=== PATIENT | female | born 1960 | race Caucasian/White ===

== ENCOUNTER 2019-11-30 08:01 | Outpatient (CLI) | payer BC, SELFPAY ==
[2019-11-30 08:23] LABS: Hemoglobin 14.6 g/dL (12.0-15.0); Mean Corpuscular HGB Conc 32.4 g/dl (32-36); Mean Corpuscular Hemoglobin 30.7 pg (26-34); Mean Corpuscular Volume 94.7 fl (80-100); Mean Platelet Volume 10.8 fl (7.4-10.4); Platelet Count Result 157 k/mm3 (150-375); Red Blood Count 4.75 M/mm3 (4.2-5.4); Red Cell Distribution Width 13.2 % (11.5-14.5); White Blood Count 5.8 K/mm3 (4.5-10.0)
[2019-11-30 08:38] LABS: Alanine Aminotransferase 17 U/L (4-35); Albumin Level 4.5 g/dL (3.5-5.1); Alkaline Phosphatase 75 U/L (38-126); Aspartate Amino Transferase 25 U/L (14-36); Bilirubin,Total 0.5 mg/dL (0.2-1.3); Blood Urea Nitrogen 19 mg/dL (7-17); Calcium 9.4 mg/dL (8.4-10.2); Carbon Dioxide 29 mmol/L (22-30); Chloride 103 mmol/L (98-107); Cholesterol 224 mg/dL (0-200); Estimated Glomerular Filt Rate > 60; Glucose 104 mg/dL (65-105); HDL Direct 63 mg/dL; Potassium 4.2 mmol/L (3.4-5.0); Sodium 141 mmol/L (137-145); Triglycerides 123 mg/dL (<150)
[2019-11-30 08:50] LABS: LDL Cholesterol Direct 130 mg/dL
[2019-11-30 09:08] LABS: Thyroid Stimulating Hormone 0.425 uIU/mL (0.465-4.680)
== END 2019-11-30 08:02 | disposition home or self-care (01) ==
LOC: ANHLAB 08:02
PROVIDERS: PCP Internal Medicine; Visit Provider Internal Medicine
DX: R73.9 Hyperglycemia, unspecified (principal); R53.83 Other fatigue
CPT/HCPCS: 36415; 80053; 80061; 84443; 85027

== ENCOUNTER → 2019-12-27 16:18 | Outpatient (CLI) | payer BC, SELFPAY ==
--- NOTE | ~2019-12-27 | MM_ITS ---
EXAMINATION: MM screening [facility] BI w jessika HISTORY: Screening TECHNIQUE: Craniocaudal and mediolateral oblique 3-D tomosynthesis images were obtained and synthetic 2-D images were generated. CAD analysis was submitted and interpreted. COMPARISON: Comparison to multiple prior studies sequentially, with oldest reviewed study dated 09/2015. BREAST PARENCHYMAL COMPOSITION: The breasts are extremely dense, which lowers the sensitivity of mamm ography. FINDINGS: Stable benign-appearing findings of both breasts. There is no evidence of suspicious mass, calcification, or architectural distortion to suggest malignancy in either breast. There has been no suspicious interval change. IMPRESSION: 1. No mammographic evidence of malignancy. 2. Recommend routine screening mammography in one year. BI-RADS Category 2: Benign finding(s). Reviewed, dictated and finalized at location A.
== END ==
PROVIDERS: Referring Provider Obstetrics & Gynecology Gynecology; Visit Provider Nurse Practitioner Family
DX: Z12.31 Encounter for screening mammogram for malignant neoplasm of breast (principal)
CPT/HCPCS: 77063; 77067

== ENCOUNTER 2020-01-24 12:22 | Emergency (ER) | payer BC, SELFPAY ==
[2020-01-24] VITALS (7 sets, daily range): BP systolic 140–157; BP diastolic 87–97; PULSE 82–90; RESP 16–18; TEMP 37.4; O2SAT 96–100
--- NOTE | ~2020-01-24 | XR_ITS ---
EXAMINATION: XR chest 1V portable INDICATION: Chest pain TECHNIQUE: Portable AP chest at 1316 hours COMPARISON: 10/01/2016 FINDINGS: The lungs are free of acute opacities. There is no pleural effusion or pneumothorax. The lauro ng volumes are low. The cardiomediastinal silhouette is normal. IMPRESSION: 1. No acute cardiopulmonary abnormality. Reviewed, dictated and finalized at location B.
--- NOTE | ~2020-01-24 | CT_ITS ---
EXAMINATION: CTA chest PE protocol DATE: 01/24/2020 14:39 INDICATION: Generalized chest pain TECHNIQUE: Computed tomography angiography (CTA) of the chest was performed with 100 mL Omnipaque-350 intravenous contrast timed to evaluate the pulmonary arteries. Coronal maximum intensity projection 3D-reconstructions were created by the technologist. Automated exposure control and iterative reconst ruction technique were employed. Exam dose: 310.59 mGy-cm total exam DLP. COMPARISON: 01/24/2020 portable AP chest FINDINGS: There is diagnostic contrast enhancement of the pulmonary arteries and no evidence of pulmo nary embolism. No thoracic aortic aneurysm or dissection. No thyroid mass lesion is evident. No hilar or mediastinal mass lesion or lymphadenopathy is detected . Normal heart size. No pericardial or pleural effusion. Normal morphology of the adrenal glands. There is mild atelectasis in the lower lung zones. Otherwise no pulmonary infiltrate or consolidation or pulmonary mass lesion is not evident. There is degenerative spurring of the thoracic spine. No suspicious osteolytic or osteoblastic lesion s are noted. IMPRESSION: No evidence of pulmonary embolism Reviewed, dictated and finalized at Location A. Reviewed, dictated and finalized at location A.
--- NOTE | 2020-01-24 12:51 | ECG_ITS ---
Measurements Intervals [place] Rate: 85 P: 18 KS: 133 QRS: -14 QRSD: 95 T: 11 QT: 346 QTc: 413 Interpretive Statements SINUS RHYTHM POOR R WAVE PROGRESSION, CONSIDER ANTERIOR INFARCT MINIMAL Q WAVES- HIGH LATERAL LEADS BORDERLINE T WAVE ABNORMALITY- ANT/INF LEADS ABNORMAL ECG Electronically Signed On 01-24-2020 13:03:47 CDT by Raúl Polk D.O.
--- NOTE | 2020-01-24 12:56 | ED.GENADULT ---
HPI - General Adult General Chief complaint: Upper Respiratory Infection Stated complaint: Multiple C/O Time Seen by Provider: 01/24/20 12:34 Source: patient Mode of arrival: ambulatory Limitations: no limitations History of Present Illness HPI narrative: This patient is a 59 year old female with history of migraine PAULA who presents for evaluation migraine headache, sore throat and left eye swelling. She states starting 1.5 weeks ago she developed URI symptoms similar to COVID. She reports sore throat , body aches, left eye irritation and swelling. She also reports left sided migraine headache for 5 days . Related Data Home Medications Medication Instructions Recorded Confirmed albuterol sulfate 90 mcg/actuation 2 puff INHALATION Q4-6H PRN gm 05/21/19 aerosol inhaler ergocalciferol (vitamin D2) 1,250 1,250 mcg PO WEEKLY 05/21/19 mcg (50,000 unit) capsule fluticasone propionate 45 2 puff INHALATION BID 12/03/19 mcg-salmeterol 21 mcg/actuation HFA inhaler Allergies Allergy/AdvReac Type Severity Reaction Status Date / Time diphenhydramine Allergy Severe Anaphylactic Verified 01/24/20 12:39 Shock metronidazole Allergy Intermediate blisters Verified 01/24/20 12:39 in the mouth Penicillins Allergy Mild Rash Verified 01/24/20 12:39 Sulfa (Sulfonamide Allergy Mild rash Verified 01/24/20 12:39 Antibiotics) Review of Systems Review of Systems: All systems reviewed & are unremarkable except as noted in HPI and below Constitutional: Constitutional: Denies chills, Reports fatigue and Denies fever(s) Eyes: Eyes: Reports eye discharge and Reports photophobia ENT: Reports sore throat Cardiovascular: Cardiovascular: Reports chest pain Respiratory: Respiratory: Reports cough (improved) and Denies dyspnea Gastrointestinal: Gastrointestinal: Denies abdominal pain, Reports nausea and Denies vomiting Neurologic: Reports headache(s) [facility] Social History Social History Smoking status: Former smoker Second hand tobacco smoke exposure: No Smoking end date: 05/16/81 Alcohol intake: never Substance use: never Gender identity (if verbalized by the patient): Female Exam Const: General: no acute distress and alert Orientation/consciousness: patient oriented x3 HENMT: Head: normocephalic and atraumatic Ears: external ears normal General nose exam: Normal nares present Face and sinus: sinuses nontender and face symmetric Mouth: Yes Normal oral and palatal mucosa present, Yes lip normal, Yes tongue normal, Yes oropharynx normal and Yes moist mucous membranes Teeth and gingiva: gingiva normal Throat: posterior oropharynx normal, tonsils normal and uvula midline Eyes: Conjunctivae: conjunctival abnormality left conjunctival injection Pupils: Equal, round and reactive pupils present EOM: EOMs intact bilaterally Neck: Neck: normal visual inspection Chest: Chest palpation & inspection: normal inspection of the chest Resp: Effort & Inspection: normal respiratory effort and no retractions Auscultation: clear to auscultation bilaterally Cardio: Rate: regular rate Rhythm: regular rhythm Heart sounds: no murmurs GI: GI Palp: Yes Soft to palpation, No Tenderness to palpation present (GI), No Guarding due to palpation present (GI) and No Rigid due to palpation Skin: General skin exam: normal color Rashes: no rashes Neuro: General: patient oriented x3, moves all extremities, no meningeal signs and CN's II-XI intact bilaterally Cranial nerves: Yes Nystagmus not present Extrem: General: normal to inspection Psych: Mental Status: mental status grossly normal Affect: normal affect Course Reevaluation(s) Reevaluation #1: Patient reports her headache is improving. I Discussed discharge plan with discharge home. Will give antibiotic eye ointment. She has no focal deficits . No corneal fluroscein uptake. Normal
[2020-01-24 13:08] LABS: Basophils Percent Auto 0.3 % (0.2-1.2); Eosinophils Absolute Auto 0.1 K/mm3 (0-0.3); Eosinophils Percent Auto 1.2 % (0-4.4); Hematocrit 45.2 % (37.0-47.0); Hemoglobin 14.8 g/dL (12.0-15.0); Immature Granulocyte Absolute 0.01 K/mm3 (0.00-0.031); Immature Granulocyte Percent A 0.2 % (0-0.5); Lymphocytes Absolute Auto 1.24 K/mm3 (0.9-3.2); Lymphocytes Percent Auto 20.7 % (18.3-44.2); Mean Corpuscular HGB Conc 32.7 g/dl (32-36); Mean Corpuscular Hemoglobin 30.8 pg (26-34); Mean Platelet Volume 10.7 fl (7.4-10.4); Monocytes Absolute Auto 0.4 K/mm3 (0.1-0.6); Monocytes Percent Auto 7.4 % (2.6-8.5); Neutrophils Absolute Auto 4.2 K/mm3 (1.3-6.7); Neutrophils Percent Auto 70.2 % (45.5-73.1); Platelet Count Result 166 k/mm3 (150-375); Red Blood Count 4.81 M/mm3 (4.2-5.4); Red Cell Distribution Width 13.3 % (11.5-14.5)
[2020-01-24] MEDS: METOCLOPRAMIDE HCL INJ 10 MG/2 ML VIAL IV PUSH (13:12)
[2020-01-24] MEDS: LACTATED RINGERS 1,000 ML 999 ML IV CONT ×2 (13:12→14:44)
[2020-01-24] MEDS: KETOROLAC 30 MG/ML VIAL (*BKC) IV PUSH (13:13)
[2020-01-24 13:22] LABS: Alanine Aminotransferase 16 U/L (4-35); Albumin Level 4.3 g/dL (3.5-5.1); Alkaline Phosphatase 75 U/L (38-126); Anion Gap 8 mmol/L (8-16); Aspartate Amino Transferase 19 U/L (14-36); Bilirubin,Total 0.6 mg/dL (0.2-1.3); Blood Urea Nitrogen 16 mg/dL (7-17); Carbon Dioxide 31 mmol/L (22-30); Chloride 101 mmol/L (98-107); Estimated CRCL calculation 68 ml/min; Estimated Glomerular Filt Rate > 60; Glucose 115 mg/dL (65-105); Potassium 4.1 mmol/L (3.4-5.0); Sodium 140 mmol/L (137-145)
[2020-01-24 13:24] LABS: D Dimer 1.13 ug/mL (<0.48)
--- NOTE | 2020-01-24 13:29 | PC.NURSE ---
pt strep culture sent to lab at this time.
[2020-01-24 13:33] LABS: Troponin I < 0.012 ng/mL (0.000-0.034)
[2020-01-24 14:29] LABS: Monoscreen Negative (Negative)
[2020-01-24 14:30] LABS: Negative Monotest Control Negative (Negative); Positive Monotest Control Positive (Positive)
--- NOTE | 2020-01-24 14:32 | PC.NURSE ---
pt to ct at this time, will medicate per provider order upon return.
--- NOTE | 2020-01-24 14:45 | PC.NURSE ---
PT PLACED ON 10L VIA NON-REBREATHER BY KUN WHYTE TO SEE IF IT HELPS PT PAULA.
--- NOTE | 2020-01-29 07:56 | PC.NURSE ---
LATE ENTRY This note is being entered to document information to the patient's record. The following information was omitted on [01/24/2020], by [BESSY]. LR WAS COMPLETED AT 1514 AND OFIRMEV WAS COMPLETED AT 1430.
== END 2020-01-24 15:48 | disposition home or self-care (01) ==
PROVIDERS: Emergency Provider General Practice; PCP Internal Medicine
DX: B34.9 Viral infection, unspecified (principal); G43.909 Migraine, unspecified, not intractable, without status migrainosus; H10.32 Unspecified acute conjunctivitis, left eye; R94.31 Abnormal electrocardiogram [ECG] [EKG]; Z87.891 Personal history of nicotine dependence
CPT/HCPCS: 36415; 71045; 71275; 80053; 84484; 85025; 85380; 86308; 87081; 87880; 93005; 96361; 96374; 96375; 99284; A9270; J0131; J1885; J2765; J7120; Q9967

== ENCOUNTER 2020-02-16 08:17 | Outpatient (CLI) | payer BC, SELFPAY ==
[2020-02-16 08:48] LABS: Basophils Percent Auto 0.5 % (0.2-1.2); Eosinophils Absolute Auto 0.1 K/mm3 (0-0.3); Hematocrit 41.9 % (37.0-47.0); Hemoglobin 13.9 g/dL (12.0-15.0); Immature Granulocyte Absolute 0.01 K/mm3 (0.00-0.031); Immature Granulocyte Percent A 0.2 % (0-0.5); Lymphocytes Absolute Auto 1.77 K/mm3 (0.9-3.2); Lymphocytes Percent Auto 30.4 % (18.3-44.2); Mean Corpuscular HGB Conc 33.2 g/dl (32-36); Mean Corpuscular Hemoglobin 30.9 pg (26-34); Mean Corpuscular Volume 93.1 fl (80-100); Mean Platelet Volume 10.4 fl (7.4-10.4); Monocytes Absolute Auto 0.3 K/mm3 (0.1-0.6); Monocytes Percent Auto 5.1 % (2.6-8.5); Neutrophils Absolute Auto 3.7 K/mm3 (1.3-6.7); Neutrophils Percent Auto 62.8 % (45.5-73.1); Platelet Count Result 177 k/mm3 (150-375); Red Cell Distribution Width 13.8 % (11.5-14.5); White Blood Count 5.8 K/mm3 (4.5-10.0)
[2020-02-16 09:09] LABS: Alanine Aminotransferase 15 U/L (4-35); Albumin Level 4.1 g/dL (3.5-5.1); Alkaline Phosphatase 59 U/L (38-126); Anion Gap 5 mmol/L (8-16); Aspartate Amino Transferase 22 U/L (14-36); Bilirubin,Total 0.5 mg/dL (0.2-1.3); Blood Urea Nitrogen 23 mg/dL (7-17); Calcium 9.3 mg/dL (8.4-10.2); Carbon Dioxide 35 mmol/L (22-30); Chloride 101 mmol/L (98-107); Cholesterol 190 mg/dL (0-200); Estimated Glomerular Filt Rate > 60; Glucose 103 mg/dL (65-105); HDL Direct 58 mg/dL; Potassium 4.2 mmol/L (3.4-5.0); Sodium 141 mmol/L (137-145); Triglycerides 82 mg/dL (<150)
[2020-02-16 09:19] LABS: Hemoglobin A1C 5.6 % (<5.7)
[2020-02-16 09:20] LABS: LDL Cholesterol Direct 114 mg/dL
[2020-02-16 09:47] LABS: Vitamin D 25 Hydroxy 39.2 ng/mL
[2020-02-16 09:48] LABS: Free T4 Free Thyroxine 0.73 ng/mL (0.78-2.19)
[2020-02-20 03:46] LABS: Thyroglobulin 2.2 ng/mL (2.8-40.9); Thyroglobulin Antibodies <1 IU/mL (<=1)
== END 2020-02-16 08:18 | disposition home or self-care (01) ==
LOC: ANHLAB 08:19
PROVIDERS: PCP Internal Medicine; Visit Provider Internal Medicine
DX: E55.9 Vitamin D deficiency, unspecified (principal); R53.83 Other fatigue; R79.89 Other specified abnormal findings of blood chemistry; R73.9 Hyperglycemia, unspecified
CPT/HCPCS: 36415; 80053; 80061; 82306; 82607; 82746; 83036; 84432; 84439; 84443; 85025; 86800

== ENCOUNTER 2020-10-02 14:39 | Outpatient (CLI) | payer BC, SELFPAY ==
--- NOTE | 2020-10-02 14:44 | ECHO_ITS ---
Patient Info Name: Daiana Bar Age: 59 years : 1960 Gender: Female Ht: 62 in Wt: 170 lbs BSA: 1.87 m2 HR: 89 bpm BP: 124 / 78 mmHg Technical Quality: Good Exam Date: 10/02/2020 3:19 PM Exam Location: [facility] Patient Status: Outpatient Admit Date: 10/02/2020 Staff Ordering Physician: Jonathan Ratliff DO Administrative Coordinator: Naomi Grewal RDCS Attending Provider: Jonathan Ratliff DO Referring Physician: Gaudencio GUAJARDO; Exam Type: CA echo doppler color flow Study Info Indications - CARDIAC MURMUR UNSPECIFIED Complete two-dimensional, color flow and Doppler transthoracic echocardiogram is performed. Summary 1. Complete two-dimensional, color flow and Doppler transthoracic echocardiogram is performed. 2. Left ventricular chamber dimension is normal. 3. Left ventricular systolic function is normal, estimated at 60-65%. 4. The left ventricular diastolic function is grade I diastolic dysfunction. 5. E/e' 11 is mildly elevated. 6. Global longitudinal strain is normal at -18.3%. 7. There is mild tricuspid valve regurgitation. 8. No pulmonary hypertension, estimated pulmonary arterial systolic pressure is 24 mmHg. Left Ventricle E/e' 11 is mildly elevated. Global longitudinal strain is normal at -18.3%. Left ventricular chamber dimension is normal. Left ventricular systolic function is normal, estimated at 60-65%. The left ventricular diastolic function is grade I diastolic dysfunction. Right Ventricle Right ventricular chamber dimension is normal. Right ventricular systolic function is normal. Left Atria Left atrial chamber dimension is normal. Right Atria Right atrial chamber dimension is normal. Aortic Valve The aortic valve is trileaflet. There is no aortic valve stenosis. There is no aortic valve regurgitation. Pulmonic Valve There is no pulmonic regurgitation. Mitral Valve There is no mitral valve stenosis. There is no mitral valve regurgitation. Tricuspid Valve There is mild tricuspid valve regurgitation. No pulmonary hypertension, estimated pulmonary arterial systolic pressure is 24 mmHg. Pericardium/Pleural There is no pericardial effusion. Inferior Vena Cava Normal inferior vena cava with >50% collapse upon inspiration consistent with normal right atrial pressure, 5 mmHg. Aorta The aortic root size at the sinus of Valsalva is normal. Left Ventricular Outflow Tract Name Value Normal LVOT 2D LVOT Diameter 2.0 cm LVOT Doppler LVOT Peak Gradient 4 mmHg LVOT Mean Gradient 2 mmHg LVOT VTI 24 cm LVOT VTI/AV VTI Ratio 0.9 LVOT Stroke Volume 72 ml LVOT CO 12.8 l/min LVOT CI 6.9 l/min/m2 Pulmonic Valve Name Value Normal PV Doppler
== END 2020-10-02 14:40 | disposition home or self-care (01) ==
PROVIDERS: PCP Internal Medicine; Visit Provider Internal Medicine
DX: R01.1 Cardiac murmur, unspecified (principal); I36.1 Nonrheumatic tricuspid (valve) insufficiency
CPT/HCPCS: 93306

== ENCOUNTER 2020-10-11 10:46 | Outpatient (CLI) | payer BC, SELFPAY ==
[2020-10-11 11:56] LABS: Basophils Percent Auto 0.4 % (0.2-1.2); Eosinophils Absolute Auto 0.1 K/mm3 (0-0.3); Eosinophils Percent Auto 1.7 % (0-4.4); Hematocrit 42.4 % (37.0-47.0); Hemoglobin 13.5 g/dL (12.0-15.0); Immature Granulocyte Absolute 0.01 K/mm3 (0.00-0.031); Immature Granulocyte Percent A 0.2 % (0-0.5); Lymphocytes Absolute Auto 1.42 K/mm3 (0.9-3.2); Lymphocytes Percent Auto 26.4 % (18.3-44.2); Mean Corpuscular HGB Conc 31.8 g/dl (32-36); Mean Corpuscular Hemoglobin 30.3 pg (26-34); Mean Corpuscular Volume 95.1 fl (80-100); Mean Platelet Volume 11.3 fl (7.4-10.4); Monocytes Absolute Auto 0.3 K/mm3 (0.1-0.6); Monocytes Percent Auto 5.8 % (2.6-8.5); Neutrophils Absolute Auto 3.5 K/mm3 (1.3-6.7); Neutrophils Percent Auto 65.5 % (45.5-73.1); Platelet Count Result 189 k/mm3 (150-375); Red Blood Count 4.46 M/mm3 (4.2-5.4); Red Cell Distribution Width 13.6 % (11.5-14.5); White Blood Count 5.4 K/mm3 (4.5-10.0)
[2020-10-11 12:18] LABS: Alanine Aminotransferase 14 U/L (4-35); Albumin Level 4.2 g/dL (3.5-5.1); Alkaline Phosphatase 66 U/L (38-126); Anion Gap 5 mmol/L (8-16); Aspartate Amino Transferase 25 U/L (14-36); Bilirubin,Total 0.5 mg/dL (0.2-1.3); Blood Urea Nitrogen 13 mg/dL (7-17); Calcium 9.3 mg/dL (8.4-10.2); Carbon Dioxide 32 mmol/L (22-30); Chloride 106 mmol/L (98-107); Cholesterol 181 mg/dL (0-200); Estimated Glomerular Filt Rate > 60; Glucose 92 mg/dL (65-105); HDL Direct 61 mg/dL; Potassium 4.1 mmol/L (3.4-5.0); Sodium 143 mmol/L (137-145); Triglycerides 121 mg/dL (<150)
[2020-10-11 12:29] LABS: LDL Cholesterol Direct 68 mg/dL
[2020-10-11 13:06] LABS: Free T4 Free Thyroxine 0.86 ng/mL (0.78-2.19)
[2020-10-11 13:25] LABS: Folic Acid > 20.0 ng/mL (2.76->20)
== END 2020-10-11 10:47 | disposition home or self-care (01) ==
PROVIDERS: PCP Internal Medicine; Visit Provider Internal Medicine
DX: R53.83 Other fatigue (principal); E78.5 Hyperlipidemia, unspecified; R79.89 Other specified abnormal findings of blood chemistry
CPT/HCPCS: 36415; 80053; 80061; 82607; 82746; 84439; 84443; 85025

== ENCOUNTER 2020-10-15 09:15 | Outpatient (CLI) | payer BC, SELFPAY ==
--- NOTE | 2020-10-20 14:22 | WPDHOLTEREM ---
Holter/Event Monitor Holter/Event Monitor Date of procedure: 10/15/20 Procedure Type: 48 hour holter monitor Indications: Palpitations Conclusion: 1. 48 hour holter monitor on 10/15/20. 2. Underlying rhythm is sinus rhythm. HR range 65-130 bpm; average HR 88 bpm. 3. There are 25 premature supraventricular complexes and 4 supraventricular couplets. No supraventricular tachycardia. 4. No premature ventricular complexes. No ventricular tachycardia. 5. No sinoatrial or atrioventricular blocks. No significant pauses greater than 2 seconds. 6. No symptoms available for correlation.
== END 2020-10-15 09:16 | disposition home or self-care (01) ==
PROVIDERS: PCP Internal Medicine; Visit Provider Internal Medicine
DX: R00.2 Palpitations (principal)
CPT/HCPCS: 93225; 93226

== ENCOUNTER 2021-10-31 11:43 | Outpatient (CLI) | payer BC, SELFPAY ==
[2021-10-31 12:46] LABS: Basophils Percent Auto 0.5 % (0.2-1.2); Eosinophils Absolute Auto 0.1 K/mm3 (0-0.3); Eosinophils Percent Auto 0.8 % (0-4.4); Hematocrit 44.4 % (37.0-47.0); Immature Granulocyte Absolute 0.01 K/mm3 (0.00-0.031); Immature Granulocyte Percent A 0.2 % (0-0.5); Lymphocytes Percent Auto 27.9 % (18.3-44.2); Mean Corpuscular HGB Conc 31.5 g/dl (32-36); Mean Corpuscular Hemoglobin 30.4 pg (26-34); Mean Corpuscular Volume 96.5 fl (80-100); Mean Platelet Volume 11.3 fl (7.4-10.4); Monocytes Absolute Auto 0.5 K/mm3 (0.1-0.6); Monocytes Percent Auto 7.7 % (2.6-8.5); Neutrophils Absolute Auto 3.8 K/mm3 (1.3-6.7); Neutrophils Percent Auto 62.9 % (45.5-73.1); Platelet Count Result 151 k/mm3 (150-375); Red Cell Distribution Width 14.2 % (11.5-14.5); White Blood Count 6.1 K/mm3 (4.5-10.0)
[2021-10-31 13:04] LABS: Alanine Aminotransferase 12 U/L (6-35); Albumin Level 4.3 g/dL (3.5-5.1); Alkaline Phosphatase 75 U/L (38-126); Anion Gap 5 mmol/L (8-16); Aspartate Amino Transferase 20 U/L (14-36); Bilirubin,Total 0.5 mg/dL (0.2-1.3); Blood Urea Nitrogen 16 mg/dL (7-17); Carbon Dioxide 31 mmol/L (22-30); Chloride 105 mmol/L (98-107); Cholesterol 205 mg/dL (0-200); Estimated Glomerular Filt Rate > 60; Glucose 97 mg/dL (65-110); HDL Direct 63 mg/dL; Potassium 4.3 mmol/L (3.4-5.0); Sodium 141 mmol/L (137-145); Triglycerides 113 mg/dL (<150)
[2021-10-31 13:15] LABS: LDL Cholesterol Direct 98 mg/dL
[2021-10-31 14:09] LABS: Folic Acid 8.9 ng/mL (2.76->20)
== END 2021-10-31 11:44 | disposition home or self-care (01) ==
LOC: ANHLAB 11:45
PROVIDERS: PCP Internal Medicine; Visit Provider Internal Medicine
DX: Z00.00 Encounter for general adult medical examination without abnormal findings (principal); R53.83 Other fatigue
CPT/HCPCS: 36415; 80053; 80061; 82607; 82746; 84443; 85025

== ENCOUNTER 2022-10-07 11:58 | Outpatient (CLI) | payer BC, SELFPAY ==
[2022-10-07 12:23] LABS: Basophils Percent Auto 0.5 % (0.2-1.2); Eosinophils Percent Auto 0.5 % (0-4.4); Hematocrit 42.9 % (37.0-47.0); Hemoglobin 13.9 g/dL (12.0-15.0); Immature Granulocyte Absolute 0.01 K/mm3 (0.00-0.031); Immature Granulocyte Percent A 0.2 % (0-0.5); Lymphocytes Absolute Auto 1.57 K/mm3 (0.9-3.2); Lymphocytes Percent Auto 26.8 % (18.3-44.2); Mean Corpuscular HGB Conc 32.4 g/dl (32-36); Mean Corpuscular Volume 95.8 fl (80-100); Mean Platelet Volume 10.8 fl (7.4-10.4); Monocytes Absolute Auto 0.4 K/mm3 (0.1-0.6); Monocytes Percent Auto 6.1 % (2.6-8.5); Neutrophils Absolute Auto 3.9 K/mm3 (1.3-6.7); Neutrophils Percent Auto 65.9 % (45.5-73.1); Platelet Count Result 167 k/mm3 (150-375); Red Blood Count 4.48 M/mm3 (4.2-5.4); White Blood Count 5.9 K/mm3 (4.5-10.0)
[2022-10-07 12:29] LABS: Alanine Aminotransferase 23 U/L (6-35); Albumin Level 4.5 g/dL (3.5-5.1); Alkaline Phosphatase 74 U/L (38-126); Anion Gap 7 mmol/L (8-16); Aspartate Amino Transferase 25 U/L (14-36); Bilirubin,Total 0.5 mg/dL (0.2-1.3); Blood Urea Nitrogen 14 mg/dL (7-17); Carbon Dioxide 29 mmol/L (22-30); Chloride 103 mmol/L (98-107); Cholesterol 218 mg/dL (0-200); Estimated Glomerular Filt Rate > 60; Glucose 111 mg/dL (65-110); HDL Direct 75 mg/dL; Sodium 139 mmol/L (137-145); Triglycerides 130 mg/dL (<150)
[2022-10-07 12:40] LABS: LDL Cholesterol Direct 112 mg/dL
[2022-10-07 14:12] LABS: Folic Acid 6.7 ng/mL (2.76->20)
== END 2022-10-07 11:59 | disposition home or self-care (01) ==
LOC: ANHLAB 12:00
PROVIDERS: PCP Internal Medicine; Visit Provider Internal Medicine
DX: E78.5 Hyperlipidemia, unspecified (principal); R53.83 Other fatigue
CPT/HCPCS: 36415; 80053; 80061; 82607; 82746; 84443; 85025

== ENCOUNTER 2022-12-07 13:28 | Emergency (ER) | payer BC, SELFPAY ==
[2022-12-07 13:39] VITALS: BP 114/85; PULSE 98; RESP 18; TEMP 36.3; O2SAT 100
--- NOTE | 2022-12-07 13:49 | ED.EXTPRO ---
HPI - Extremity Problem General Chief complaint: Extremity Injury, Lower Stated complaint: Lt Foot Pain Time Seen by Provider: 12/07/22 13:45 Source: patient Mode of arrival: ambulatory Limitations: no limitations History of Present Illness HPI Narrative: Daiana is a 62-year-old female patient presenting to the clinic today with complaints of pain to the top of her foot. She reports this has been going on for several weeks and the area seems to be getting bigger. States that pain will radiate up her leg and cause her to have numbness and tingling. Related Data Allergies Allergy/AdvReac Type Severity Reaction Status Date / Time diphenhydramine Allergy Severe Anaphylactic Verified 11/22/22 13:29 Shock metronidazole Allergy Intermediate blisters Verified 11/22/22 13:29 in the mouth Penicillins Allergy Mild Rash Verified 11/22/22 13:29 Sulfa (Sulfonamide Allergy Mild rash Verified 11/22/22 13:29 Antibiotics) erythromycin base AdvReac Intermediate Rash Verified 11/22/22 13:29 Review of Systems Review of Systems: Pertinent positives per HPI. Patient denies any fever, chills, rash, headache, visual changes, dizziness, cough, runny nose, sore throat, shortness of breath, chest pain, palpitations, nausea, vomiting, diarrhea, constipation, abdominal pain, or any urinary issues. [facility] Past Medical History Medical History Hyperlipidemia Migraine, unspecified, not intractable, without status migrainosus Surgical History Surgical History History of eye surgery Family History Family History Mother Family history of diabetes mellitus in first degree relative Father Patient's father is Social History Social History Smoking packs per day: 0.5 Smoking cigarettes per day: 10.0 Years smoked: 5 Smoking pack-years: 2.50 Smoking status: Former smoker Second hand tobacco smoke exposure: No Smoking end date: 05/16/81 Alcohol intake: never Substance use: never Lack of Transportation: No Lack of Food: Never True Current Housing: I Have Housing Concerned About Future Housing: No Difficulty Paying Gas/Electric Bills: No Difficulty Paying for Meds: No Currently Unemployed: No Education: High School Diploma/GED Difficulty w/ Childcare or Family Care: No Gender identity (if verbalized by the patient): Female Comments At the time of my signature, I reviewed and agree with the nursing past medical, surgical, social, and family history. There is no relevant family history pertinent to the patient complaint. Exam Narrative: General: Well-developed, well nourished, in no apparent distress Head: Normocephalic, atraumatic. Cardio: Regular rate and rhythm, s1 and s2 normal, no murmur appreciated. Resp: Clear to auscultation bilaterally, no rhonchi, rales, wheezing or rubs. Musculoskeletal: No deformity, soft tissue mass palpable to the top of the left anterior lateral proximal foot, tender to palpation over this area, grossly normal range of motion, muscle strength strong and equal, peripheral pulse strong, no edema, no cyanosis, normal gait and station Course Course Emergency Course: Portions of this record may have been created with voice recognition software. Level of Care: Express Care Visit Vital Signs Vital signs: Vital Signs Temperature 36.3 C L 12/07/22 13:39 Pulse Rate 98 12/07/22 13:39 Respiratory Rate 18 12/07/22 13:39 Blood Pressure 114/85 12/07/22 13:39 Pulse Oximetry 100 12/07/22 13:39 Oxygen Delivery Room Air 12/07/22 13:39 Temperature 36.3 C L 12/07/22 13:39 Pulse Rate 98 12/07/22 13:39 Respiratory Rate 18 12/07/22 13:39 Blood Pressure 114/85 12/07/22 1
== END 2022-12-07 14:12 | disposition home or self-care (01) ==
PROVIDERS: Emergency Provider Nurse Practitioner Family; PCP Internal Medicine
DX: R22.42 Localized swelling, mass and lump, left lower limb (principal); M79.672 Pain in left foot; E78.5 Hyperlipidemia, unspecified; Z87.891 Personal history of nicotine dependence
CPT/HCPCS: 73630; 99213; G0463

== ENCOUNTER 2022-12-29 12:42 | Outpatient (CLI) | payer BC, SELFPAY ==
--- NOTE | ~2022-12-29 | US_ITS ---
EXAMINATION: US soft tissue LE LT DATE: 12/29/2022 13:20 INDICATION: Localized swelling, mass and lump, left foot. TECHNIQUE: Multiple grayscale and Doppler ultrasound images of the left foot were obtained. COMPARISON: None FINDINGS: There is no abnormal mass or cyst in the patient's area of concern in left foot. IMPRESSION: 1. No abnormal mass or cyst in the patient's area of concern in left foot. Reviewed, dictated and finalized at location A.
== END 2022-12-29 12:43 | disposition home or self-care (01) ==
PROVIDERS: PCP Internal Medicine; Visit Provider Physician Assistant
DX: R22.42 Localized swelling, mass and lump, left lower limb (principal)
CPT/HCPCS: 76882

== ENCOUNTER → 2023-01-06 13:11 | Outpatient (CLI) | payer BC, SELFPAY ==
--- NOTE | ~2023-01-06 | MM_ITS ---
EXAMINATION: MM screening [facility] BI w jessika HISTORY: Screening mammogram TECHNIQUE: Craniocaudal and mediolateral oblique 3-D tomosynthesis images were obtained and synthetic 2-D images were generated. CAD analysis was submitted and interpreted. COMPARISON: 12/27/2019, 11/15/2018 bilateral screening mammogram examinations BREAST PARENCHYMAL COMPOSITION: The breasts are heterogeneously dense, which may obscure small masses . FINDINGS: Occasional benign calcifications. There is no evidence of suspicious mass, calcification, o r architectural distortion to suggest malignancy in either breast. There has been no suspicious inter hazel change. IMPRESSION: 1. No mammographic evidence of malignancy. 2. Recommend routine screening mammography in one year. BI-RADS Category 2: Benign finding(s). Reviewed, dictated and finalized at location A.
--- NOTE | ~2023-01-06 | DEXA_ITS ---
Bone Density Report Name: THOMPSON PEARCE Age: 62 Sex: Female Ethnicity: Date of : 1960 Indication: postmenopausal; screening for osteoporosis; Referring Provider: CARLOS A, LUIS Study: Bone densitometry was performed. Exam Date: January 06, 2023 Accession number: [id number] Bone Density: Region BMD T-score Z-score Classification AP Spine (L1-L4) 0.927 -1.1 0.6 Osteopenia Femoral Neck (Left) 0.771 -0.7 0.5 Normal Total Hip (Left) 0.869 -0.6 0.4 Normal Femoral Neck (Right) 0.810 -0.3 0.9 Normal Total Hip (Right) 0.833 -0.9 0.1 Normal Total Hip Mean 0.851 -0.8 0.3 Normal World Health Organization criteria for BMD impression classify patients as: Normal (T-score at or above -1.0), Osteopenia (T-score between -1.0 and -2.5), or Osteoporosis (T-score at or below -2.5). 10-year Fracture Risk(1): Major Osteoporotic Fracture 7.1% Hip Fracture 0.4% Reported Risk Factors: [place] (), Neck BMD=0.771, BMI=32.1 (1) FRAX(R) Version 3.08. Fracture probability calculated for an untreated patient. Fracture probability may be lower if the patient has received treatment. Previous Exams: Region Exam Age BMD T-score BMD Change BMD Change Date g/cm2 vs Baseline vs Previous AP Spine(L1-L4) 01/06/2023 62 0.927 -1.1 -0.153* -0.105* 02/21/2017 56 1.031 -0.1 -0.048* -0.048* 06/20/2012 51 1.079 0.3 Total Hip(Left) 01/06/2023 62 0.869 -0.6 -0.127* -0.092* 02/21/2017 56 0.962 0.2 -0.035* -0.035* 06/20/2012 51 0.997 0.4 Total Hip(Right) 01/06/2023 62 0.833 -0.9 -0.117* -0.050* 02/21/2017 56 0.883 -0.5 -0.067* -0.067* 06/20/2012 51 0.950 0.1 *Denotes significance at 95% confidence level, LSC for AP Spine = 0.022 g/cm2, LSC for Total Hip = 0.027 g/cm2 Clinical Information Provided by Patient: Patient maximum height was 62.5 Menopause Age: 51 Drinks caffeinated beverages Onset of menses at age 9 Number of children 3 Impression: The patient has low bone mass, based on the Total Spine T-score. The patient has an estimated ten-year risk of hip fracture of 0.4% and an estimated ten-year risk of major fracture of 7.1%, based on the WHO FRAX algorithm. The BMD for the AP Spine(L1-L4) decreased, changing by -0.105 since the last DXA exam. The BMD for the Total Hip(Left) decreased, changing by -0.09
== END ==
PROVIDERS: PCP Internal Medicine; Visit Provider Nurse Practitioner
DX: Z12.31 Encounter for screening mammogram for malignant neoplasm of breast (principal); Z78.0 Asymptomatic menopausal state; M85.88 Other specified disorders of bone density and structure, other site
CPT/HCPCS: 77063; 77067; 77080

== ENCOUNTER 2023-02-04 03:17 | Day surgery (SDC) | payer BC, SELFPAY ==
[2023-01-27 15:15] VITALS: BMI 31.1
--- NOTE | 2023-01-27 15:21 | PC.NURSE ---
Report to the Outpatient Waiting Room, entrance under the green pavilion located off [facility], at time 0600 on date 02/04/23. Planned Procedure Time: 0730. Time changes happen often and if your time is changed the preop area will call you the afternoon before. - You and your visitor will be asked to self-screen and do not enter if you have any COVID symptoms. - A mask is optional within the hospital at this time. Patients may have clear liquids (water, carbonated beverages, clear teas, apple juice) until 3 hours prior to surgery with a maximum of 20 ounces. - No food from midnight until time of surgery Take the following medications with a SIP of water the morning of surgery: CITALOPRAM, INHALERS DO NOT STOP ANY OF YOUR OTHER PRESCRIPTION MEDICATIONS PRIOR TO SURGERY ?EXCEPT THE FOLLOWING Medications to discontinue per physician: N/A Date to take last dose: N/A Please no make-up, nail hebrew, hairspray, perfume, deodorant, or body powder the day of surgery. No jewelry (including any body piercings) or valuables the day of surgery, leave them at home. Please take a shower or bath the night before, or the morning of, surgery with an antibacterial soap. Wear comfortable, loose fitting clothing. - Jewelry must be removed prior to entering the operating room. Rings and piercings that are not removed may be cut off. - The hospital will not accept responsibility for valuables. - Please leave all valuables, including medications, at home the day of surgery. If you are going home after surgery, a licensed bobtail driver must drive you home. - NO public transportation without another adult if you receive anesthesia. - We recommend that an adult stay with you for 24 hours following discharge. - We also recommend that you do not drive, make important decision, drink alcoholic beverages, or take any drugs that were not prescribed by your health care provider for at least 24 hours after your discharge time. Follow any additional instructions given to you from your surgeon. If you or anyone in your household have experienced Covid symptoms in the past week, please notify your surgeon or the nurse liaison at the phone number below for possible testing. Telephone instructions given to PT - THOMPSON PEARCE and asked if any additional questions and then verbalized understanding. Patient advised to call surgeon office or pre surgery nurse liaison [phone] if any additional questions.
--- NOTE | 2023-02-03 07:36 | PM.IMHP ---
H&P: HPI History of Present Illness Date/Time: 02/03/23 07:36 Chief Complaint: Incontinence Narrative: [age] year old with documented stress incontinence by history and by urodynamics. She desires surgical correction Review of Systems Review of Systems: All systems reviewed & are unremarkable except as noted in HPI and below PMFSH Past Medical History Medical History Hyperlipidemia Migraine, unspecified, not intractable, without status migrainosus Surgical History Surgical History History of eye surgery Family History Family History Mother Family history of diabetes mellitus in first degree relative Father Patient's father is Social History Social History Smoking packs per day: 0.5 Smoking cigarettes per day: 10.0 Years smoked: 5 Smoking pack-years: 2.50 Smoking status: Former smoker Tobacco type: cigarettes Second hand tobacco smoke exposure: No Smoking end date: 05/16/87 Alcohol intake: never Substance use: never Substance use type: does not use Lack of Transportation: No Lack of Food: Never True Current Housing: I Have Housing Concerned About Future Housing: No Difficulty Paying Gas/Electric Bills: No Difficulty Paying for Meds: No Currently Unemployed: No Education: High School Diploma/GED Difficulty w/ Childcare or Family Care: No Living arrangements: alone Gender identity (if verbalized by the patient): Female Spiritual care concerns: No Meds Home Medications and Allergies Home Medications Medication Instructions Recorded Confirmed Type albuterol sulfate 90 mcg/actuation 2 puff inhalation Q4-6H PRN 07/02/20 01/27/23 Rx aerosol inhaler (ProAir HFA) Shortness Of Breath #8.5 grams fluticasone 250 mcg-salmeterol 50 1 inh inhalation BID #180 ea 02/28/22 01/27/23 Rx mcg/dose blistr powdr for inhalation (Advair Diskus) citalopram 20 mg tablet 20 mg PO DAILY #90 tabs 10/14/22 01/27/23 Rx pantoprazole 40 mg tablet,delayed 40 mg PO QAM #90 tabs 11/22/22 01/27/23 Rx release montelukast 10 mg tablet 10 mg PO DAILY #90 tabs 01/07/23 01/27/23 Rx sumatriptan succinate 100 mg tablet See Rx Instructions PO .COMPLEX #9 01/21/23 01/27/23 Rx tabs trazodone 100 mg tablet 100 mg PO .hs #90 tabs 01/31/23 Rx Allergies Allergy/AdvReac Type Severity Reaction Status Date / Time diphenhydramine Allergy Severe Anaphylactic Verified 01/27/23 15:14 Shock metronidazole Allergy Intermediate blisters Verified 01/27/23 15:14 in the mouth Penicillins Allergy Mild Rash Verified 01/27/23 15:14 Sulfa (Sulfonamide Allergy Mild rash Verified 01/27/23 15:14 Antibiotics) erythromycin base AdvReac Intermediate Rash Verified 01/27/23 15:14 Exam Narrative: no acute distress normal breathing alert and oriented x3 urethral hypermobility present Assessment and Plan Assessment and plan (1) INCOLAS (stress urinary incontinence, female): Code(s): N39.3 - Stress incontinence (female) (male) Status: Acute Assessment and Plan: plan for urethral sling. Understands risks of bleeding, infection, damage to the urinary tract, lack of cure of stress incontinence, recurrent stress incontinence postoperative voiding dysfunction including incontinence and retention, hip and leg pain, dyspareunia, obstructive voiding requiring secondary procedure, mesh exposure requiring removal. She agrees to proceed
--- NOTE | 2023-02-04 07:18 | WPDHPUPDATE1 ---
History and Physical Update Update Date/Time: 02/04/23 07:18 History and Physical has been reviewed, including an updated exam of the patient. There are NO changes in the patient's condition. Risks, benefits, and alternatives have been discussed and questions answered. Patient agrees to proceed with procedure.
[2023-02-04 07:26] VITALS: BP 136/80; PULSE 88; RESP 18; TEMP 36.7; O2SAT 99
[2023-02-04] MEDS: LACTATED RINGERS 1,000 ML 30 ML IV CONT ×2 (07:50→09:52)
--- NOTE | 2023-02-04 07:54 | WPDANESEPPF ---
Anes - Initial Pre Proc Eval Procedure: Operation Date: 02/04/23 09:00 Proposed Procedures p Urethral Sling - Thai Medina MD Date/Time: 02/04/23 07:54 Surgeon: Thai Medina MD Pre Op Diagnosis: Stress Incont Patient Data Age: 62 Gender: F Height: 1.57 m Weight: 79 kg Last Vital Signs Temp 36.7 C 02/04/23 07:26 Pulse 88 02/04/23 07:26 Resp 18 02/04/23 07:26 BP 136/80 02/04/23 07:26 Pulse Ox 99 02/04/23 07:26 O2 Del Method Room Air 02/04/23 07:26 Allergies Allergy/AdvReac Type Severity Reaction Status Date / Time diphenhydramine Allergy Severe Anaphylactic Verified 02/04/23 07:29 Shock metronidazole Allergy Intermediate blisters Verified 02/04/23 07:29 in the mouth Penicillins Allergy Mild Rash Verified 02/04/23 07:29 Sulfa (Sulfonamide Allergy Mild rash Verified 02/04/23 07:29 Antibiotics) erythromycin base AdvReac Intermediate Rash Verified 02/04/23 07:29 Home Medications Medication Instructions Recorded Confirmed Type albuterol sulfate 90 mcg/actuation 2 puff inhalation Q4-6H PRN 07/02/20 02/04/23 Rx aerosol inhaler (ProAir HFA) Shortness Of Breath #8.5 grams fluticasone 250 mcg-salmeterol 50 1 inh inhalation BID #180 ea 02/28/22 02/04/23 Rx mcg/dose blistr powdr for inhalation (Advair Diskus) citalopram 20 mg tablet 20 mg PO DAILY #90 tabs 10/14/22 02/04/23 Rx pantoprazole 40 mg tablet,delayed 40 mg PO QAM #90 tabs 11/22/22 02/04/23 Rx release montelukast 10 mg tablet 10 mg PO DAILY #90 tabs 01/07/23 02/04/23 Rx sumatriptan succinate 100 mg tablet See Rx Instructions PO .COMPLEX #9 01/21/23 02/04/23 Rx tabs trazodone 100 mg tablet 100 mg PO .hs #90 tabs 01/31/23 02/04/23 Rx Patient hx anesthesia problems: none Family hx anesthesia problems: none Results Review: All pre-operative results and documents have been reviewed as part of the pre-operative evaluation. [facility] Past Medical History Medical History (Updated 02/04/23 @ 07:54 by Kelvin Garcia MD) Asthma Hyperlipidemia Migraine, unspecified, not intractable, without status migrainosus Surgical History Surgical History (Updated 02/04/23 @ 07:54 by Kelvin Garcia MD) History of section History of eye surgery Family History Family History Mother Family history of diabetes mellitus in first degree relative Father Patient's father is Social History Social History Smoking packs per day: 0.5 Smoking cigarettes per day: 10.0 Years smoked: 5 Smoking pack-years: 2.50 Smoking status: Former smoker Tobacco type: cigarettes Second hand tobacco smoke exposure: No Smoking end date: 05/16/87 Alcohol intake: never Substance use: never Substance use type: does not use Lack of Transportation: No Lack of Food: Never True Current Housing: I Have Housing Concerned About Future Housing: No Difficulty Paying Gas/Electric Bills: No Difficulty Paying for Meds: No Currently Unemployed: No Education: High School Diploma/GED Difficulty w/ Childcare or Family Care: No Living arrangements: alone Gender identity (if verbalized by the patient): Female Spiritual care concerns: No Anes - Eval Final PreProcedure Day of Procedure 02/04/23 07:54 Patient weight: obese Heart: regular rate and rhythm Lungs: clear to auscultation Airway: Mallampati scale class II Neurological: alert and oriented Last oral intake: >/= 8 hours Emergent: no Anesthetic plan: proceed Anesthesia type and monitoring: general GIVS and standard monitoring Results Review: All pre-operative results and documents have been reviewed as part of the pre-operative evaluation. Informed Consent: The patient's anesthetic plan and its attendant risks and benefits were discussed with the patient/family/POA. Questions were so
[2023-02-04] MEDS: ceFAZolin 2 GM/D5W 50 ML 2 GM/50 ML BAG IVPB (08:53)
[2023-02-04] MEDS: BUPIVACAINE/EPINEPHRINE 0.5% 10 ML VIAL 20 ML INFILTRATE (09:09)
[2023-02-04 09:23] VITALS: BP 95/55; PULSE 79; RESP 14; O2SAT 98
--- NOTE | 2023-02-04 09:38 | P.OP_ITS ---
Procedure Note - Detailed Date of Procedure 02/04/23 Pre-op Diagnosis Stress Incont Post-op Diagnosis Same Procedure Performed mid urethral sling cystoscopy Surgeon Thai Medina MD Anesthesia MAC and Local Indications This is a female with confirm stress urinary incontinence. She has done physical therapy and that was not beneficial enough for her. She desires surgical correction. She understands the risks of bleeding, infection, injury to the urinary tract, vaginal mesh extrusion, urinary tract mesh erosion, obstructive voiding requiring a secondary procedure, hip and leg pain, dyspareunia, inability to improve overactive bladder symptoms. She agrees to proceed. Description of Procedure She was correctly identified. Informed consent obtained. She was brought the operating room. She was given appropriate anesthesia. She was given appr opriate perioperative antibiotics. A time-out performed. I marked out the site of the inner thigh incisions. I anesthetized the skin and made those incisions. Lichen sclerosis of the vaginal tissues is noted.I anesthetized the anterior vaginal wall over the mid urethra. I made a 1 cm incision. I dissected out laterally taking great care not to injure the refilled vaginal wall. I passed the helical trocars. First on the left. Then on the right. I did this from the thigh incision towards the vaginal incision. The sling was connected to the trocars and brought out through the thigh incision. I tensioned the sling appropriately. I cut and the plastic sheaths. I then closed the incision with 2 0 Vicryl. On cystoscopy there is no tumors or surgical artifact. There was no surgical artifact in the urethra. I cut the excess sling material. Close incisions with glue. She was awakened and transferred to the PACU in stable condition. Implants Urethral sling Estimated Blood Loss -10.0 Drains No Packing No Pathology None sent Complications No immediate complications Condition Stable Disposition PACU
[2023-02-04 09:53] VITALS: BP 112/72; PULSE 75; RESP 14; O2SAT 98
== END 2023-02-04 10:25 | disposition home or self-care (01) ==
PROVIDERS: PCP Internal Medicine; Visit Provider Urology
PROC: (CPT 57288; principal; 2023-02-04 09:00)
DX: N39.3 Stress incontinence (female) (male) (principal); J45.909 Unspecified asthma, uncomplicated; E78.5 Hyperlipidemia, unspecified; Z87.891 Personal history of nicotine dependence; E66.9 Obesity, unspecified; Z68.31 Body mass index [BMI] 31.0-31.9, adult; Z79.51 Long term (current) use of inhaled steroids
CPT/HCPCS: 57288; C1771; J0690; J2250; J2704; J3010; J7030; J7120

== ENCOUNTER 2023-02-08 10:14 | Outpatient (CLI) | payer BC, SELFPAY ==
[2023-02-08 11:25] LABS: Vitamin D 25 Hydroxy 41.2 ng/mL
== END 2023-02-08 10:15 | disposition home or self-care (01) ==
LOC: ANHLAB 10:16
PROVIDERS: PCP Internal Medicine; Visit Provider Obstetrics & Gynecology Gynecology
DX: E55.9 Vitamin D deficiency, unspecified (principal)
CPT/HCPCS: 36415; 82306

== ENCOUNTER 2023-05-06 08:08 | Outpatient (CLI) | payer BC, SELFPAY ==
[2023-05-06 08:48] LABS: Alanine Aminotransferase 16 U/L (6-35); Albumin Level 4.2 g/dL (3.5-5.1); Alkaline Phosphatase 71 U/L (38-126); Anion Gap 5 mmol/L (8-16); Aspartate Amino Transferase 24 U/L (14-36); Bilirubin,Total 0.6 mg/dL (0.2-1.3); Blood Urea Nitrogen 16 mg/dL (7-17); Calcium 9.1 mg/dL (8.4-10.2); Carbon Dioxide 30 mmol/L (22-30); Chloride 107 mmol/L (98-107); Cholesterol 209 mg/dL (0-200); Estimated Glomerular Filt Rate > 60; Glucose 111 mg/dL (65-110); HDL Direct 66 mg/dL; Potassium 4.4 mmol/L (3.4-5.0); Sodium 142 mmol/L (137-145); Triglycerides 120 mg/dL (<150)
[2023-05-06 08:59] LABS: LDL Cholesterol Direct 104 mg/dL
[2023-05-06 09:10] LABS: Vitamin D 25 Hydroxy 37.1 ng/mL
[2023-05-06 09:34] LABS: Hemoglobin A1C 5.9 % (<5.7)
== END 2023-05-06 08:09 | disposition home or self-care (01) ==
PROVIDERS: PCP Internal Medicine; Referring Provider Obstetrics & Gynecology Gynecology; Visit Provider Internal Medicine
DX: E55.9 Vitamin D deficiency, unspecified (principal); E78.5 Hyperlipidemia, unspecified; R73.9 Hyperglycemia, unspecified
CPT/HCPCS: 36415; 80053; 80061; 82306; 83036

== ENCOUNTER 2023-09-15 10:44 | Emergency (ER) | payer OTHER, BC, SELFPAY ==
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
[2023-09-15 10:38] VITALS: BP 126/74; PULSE 97; RESP 18; TEMP 36.4; O2SAT 99
[2023-09-15 11:19] VITALS: BP 133/93; PULSE 92; RESP 15; O2SAT 98
--- NOTE | 2023-09-15 11:19 | PC.NURSE ---
Pt given ice pack for swelling and comfort. She states I hate ice packs , and set to the side. Pt updated, injury assessed, bleeding controlled at this time.
[2023-09-15 11:56] VITALS: PULSE 92; RESP 20; O2SAT 98
== END 2023-09-15 12:27 | disposition home or self-care (01) ==
PROVIDERS: Emergency Provider Nurse Practitioner Family; PCP Internal Medicine
DX: S01.81XA Laceration without foreign body of other part of head, initial encounter (principal); S80.11XA Contusion of right lower leg, initial encounter; V89.2XXA Person injured in unspecified motor-vehicle accident, traffic, initial encounter; W22.10XA Striking against or struck by unspecified automobile airbag, initial encounter; J45.909 Unspecified asthma, uncomplicated; E78.5 Hyperlipidemia, unspecified; Z87.891 Personal history of nicotine dependence
CPT/HCPCS: 70450; 73590; 99284

== ENCOUNTER 2023-09-29 11:00 | Outpatient (CLI) | payer BC, SELFPAY ==
--- NOTE | ~2023-09-29 | XR_ITS ---
XR chest 2V DATE: 09/29/2023 11:13 INDICATION: Cough TECHNIQUE: 2 views COMPARISON: None FINDINGS: Heart size is within normal limits. There is aortic tortuosity and mild calcification. No hilar or mediastinal enlargement. No pulmonary infiltrate or consolidation, pleural effusion or pu lmonary vascular congestion or pneumothorax is detected. Osteopenia. IMPRESSION: No active cardiopulmonary disease Reviewed, dictated and finalized at location B.
== END 2023-09-29 11:01 ==
PROVIDERS: PCP Allergy & Immunology; Visit Provider Allergy & Immunology
DX: R05.9 Cough, unspecified (principal)
CPT/HCPCS: 71046

== ENCOUNTER 2024-01-13 12:06 | Outpatient (CLI) | payer MEDICARE, SELFPAY ==
[2024-01-13 12:45] LABS: Basophils Percent Auto 0.4 % (0.2-1.2); Eosinophils Absolute Auto 0.1 K/mm3 (0-0.3); Eosinophils Percent Auto 0.9 % (0-4.4); Hematocrit 45.3 % (37.0-47.0); Hemoglobin 14.5 g/dL (12.0-15.0); Immature Granulocyte Absolute 0.02 K/mm3 (0.00-0.031); Immature Granulocyte Percent A 0.3 % (0-0.5); Lymphocytes Absolute Auto 1.85 K/mm3 (0.9-3.2); Lymphocytes Percent Auto 26.5 % (18.3-44.2); Mean Corpuscular Volume 96.8 fl (80-100); Mean Platelet Volume 11.3 fl (7.4-10.4); Monocytes Absolute Auto 0.4 K/mm3 (0.1-0.6); Monocytes Percent Auto 5.9 % (2.6-8.5); Neutrophils Absolute Auto 4.6 K/mm3 (1.3-6.7); Platelet Count Result 171 k/mm3 (150-375); Red Blood Count 4.68 M/mm3 (4.2-5.4); Red Cell Distribution Width 13.8 % (11.5-14.5)
[2024-01-13 12:58] LABS: Alanine Aminotransferase 16 U/L (6-35); Albumin Level 4.5 g/dL (3.5-5.1); Alkaline Phosphatase 70 U/L (38-126); Anion Gap 8 mmol/L (4-12); Aspartate Amino Transferase 23 U/L (14-36); Bilirubin,Total 0.6 mg/dL (0.2-1.3); Blood Urea Nitrogen 19 mg/dL (7-17); Calcium 9.3 mg/dL (8.4-10.2); Carbon Dioxide 31 mmol/L (22-30); Chloride 102 mmol/L (98-107); Estimated Glomerular Filt Rate > 60; Glucose 100 mg/dL (65-110); Sodium 141 mmol/L (137-145)
[2024-01-13 13:28] LABS: Thyroid Stimulating Hormone 0.354 uIU/mL (0.465-4.680)
[2024-01-13 14:13] LABS: Hemoglobin A1C 5.8 % (<5.7)
== END 2024-01-13 12:07 | disposition home or self-care (01) ==
LOC: ANHLAB 12:15
PROVIDERS: PCP Allergy & Immunology; Visit Provider Internal Medicine
DX: R73.9 Hyperglycemia, unspecified (principal); E78.5 Hyperlipidemia, unspecified; R05.9 Cough, unspecified
CPT/HCPCS: 36415; 80053; 83036; 84443; 85025

== ENCOUNTER 2024-02-20 11:20 | Outpatient (CLI) | payer MEDICARE, SELFPAY ==
[2024-02-20 12:40] LABS: Thyroid Stimulating Hormone 0.134 uIU/mL (0.465-4.680)
== END 2024-02-20 11:21 | disposition home or self-care (01) ==
PROVIDERS: PCP Internal Medicine; Visit Provider Internal Medicine
DX: E78.5 Hyperlipidemia, unspecified (principal); R79.89 Other specified abnormal findings of blood chemistry
CPT/HCPCS: 36415; 84439; 84443

== ENCOUNTER 2024-07-09 13:19 | Outpatient (CLI) | payer MEDICARE, SELFPAY ==
--- NOTE | ~2024-07-09 | MM_ITS ---
EXAMINATION: MM screening josette BI w jessika HISTORY: Screening mammogram TECHNIQUE: Craniocaudal and mediolateral oblique 3-D tomosynthesis images were obtained and synthetic 2-D images were generated. CAD analysis was submitted and interpreted. COMPARISON: 01/06/2023, 12/27/2019 BREAST PARENCHYMAL COMPOSITION:Dense: The breasts are heterogeneously dense, which may obscure small masses. FINDINGS: No suspicious mass, calcification, or architectural distortion are identified in either merary ast to suggest malignancy. There has been no suspicious interval change. IMPRESSION: No mammographic evidence of malignancy. Recommend routine screening mammography in one year. BI-RADS Category 1: Negative Reviewed, dictated and finalized at location . GNMENT EDITOR
== END 2024-07-09 13:20 | disposition home or self-care (01) ==
PROVIDERS: PCP Internal Medicine; Visit Provider Obstetrics & Gynecology Gynecology
DX: Z12.31 Encounter for screening mammogram for malignant neoplasm of breast (principal)
CPT/HCPCS: 77063; 77067

== ENCOUNTER 2024-07-13 13:46 | Outpatient (CLI) | payer MEDICARE, SELFPAY ==
[2024-07-13 15:29] LABS: Hemoglobin A1C 5.7 % (<5.7)
[2024-07-13 15:31] LABS: Free T4 Free Thyroxine 1.01 ng/dL (0.78-2.19)
== END 2024-07-13 13:47 | disposition home or self-care (01) ==
LOC: ANHLAB 13:49
PROVIDERS: PCP Internal Medicine; Visit Provider Internal Medicine
DX: E78.5 Hyperlipidemia, unspecified (principal); R73.9 Hyperglycemia, unspecified
CPT/HCPCS: 36415; 83036; 84439

== ENCOUNTER 2024-10-23 13:06 | Outpatient (CLI) | payer MEDICARE, SELFPAY ==
--- OUTSIDE RECORDS SUMMARY | 2024-10-23 14:09 | XMS_ITS | Clinical Summary ---
Author Organization [facility] Address [address] [place] [address] Phone Care Team Providers Care Posting Machine Operator Name Role Phone Jonathan Ratliff DO Primary Care Provider [phone] Allergies Active Allergy Reactions Criticality Noted Date Comments Metronidazole Other (See Comments) 12/08/2009 Blisters on tongue Penicillins Rash Low 12/08/2009 Medications FEXOFENADINE HCL (ALBINA ORAL) Take by mouth. Activ e TOPIRAMATE (TOPAMAX ORAL) Take by mouth daily. 300 mg Active busPIRone (BUSPAR) 15 mg Oral Tab Take 15 mg by mouth 2 times daily. Active SUMATRIPTAN SUCCINATE (IMITREX ORAL) Take by mouth. Prn for migraines Active ALBUTEROL INHALATION Take by inhalation. PRn Active Active Problems Patient Care Coordination No te Formatting of this note migh t be different from the original. Primary Care: Jonathan Ratliff DO Referring Provider: Michael Acosta [address] [facility] [address] [place] [address] Other: No known active problems Family History Medical History Relation Name Comments Breast Cancer Maternal Aunt 1 dx @ age: u nknown Breast Cancer Maternal Aunt 2 age unknown Heart Disease Maternal Grandfather Other Maternal Grandfather diabete s Other Paternal Grandfather diabete s Ovarian Cancer Neg Hx Uterine Cancer Neg Hx Relation Name Status Comments Maternal Aunt 1 Maternal Aunt 2 Maternal Grandfather Paternal Grandfather Social History Tobacco Use Types Packs/Day Years Used Date Smoking Tobacco: Former Smokeless Tobacco: Never Alcohol Use Standard Drinks/Week Comments Yes 0 (1 standard drink = 0.6 oz pur e alcohol) rare Comments No Sex and Gender Information Value Date Recorded Sex Assigned at Not on file 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 Gender Identity Not on file Sexual Orientation Not on file Last Filed Vital Signs Vital Sign Reading Time Taken Comments Blood Pressure 132/83 02/25/2011 11:19 AM CDT Pulse - - Temperature - - Respiratory Rate - - Oxygen Saturation - - Inhaled Oxygen Concentration - - Weight 86.6 kg (191 lb) 02/25/2011 11:19 AM CDT Height 157.5 cm (5' 2) 02/25/2011 11:19 AM CDT Body Mass Index 34.93 02/25/2011 11:19 AM CDT Plan of Treatment Health Maintenance Due Date Last Done Comments DTAP/TDAP/TD VACCINES (1 - Tdap) 1977 COLORECTAL SCREENING 11/19/2003 Colorectal Cancer Screening 11/19/2003 FIT-DNA Q 3 years 11/19/2003 FIT/FOBT Q 1 year 11/19/2003 Flex Sig/CT Colonography Q 5 years 11/19/2003 PNEUMOCOCCAL VACCINE 50+ YEA RS (1 of 1 - PCV) 2008 ZOSTER VACCINE (1 of 2) 2008 BREAST CANCER SCREENING 08/13/2011 08/12/2010, 01/01 OSTEOPOROSIS SCREENING 11/19/2023 INFLUENZA VACCINE (#1) 2023 RSV VACCINE (60+ or ) (1 - 1-dose 75+ series) 2033 Procedures Procedure Name Priority Date/Time Associated Diagnosis Comments MAMMO DIAGNOSTIC BILATERAL W OR WO CAD Routine 08/12/2010 3:09 PM CDT Diffuse cystic mastopathy from Last 3 Months or Most Recently Relevant to Health Maintenance Results * MAMMO DIGITAL DIAG BILAT (08/12/2010 3:09 PM CDT) Anatomical Region Laterality Modality Breast Bilateral Mammography Impressions 08/14/2010 8:12 AM CDT : Negative bilateral diagnostic mammogram. Recommend routine follow up. OVERALL ASSESSMENT: BIRADS category 1 - Negative Patient: Daiana Bar Narrative 08/14/2010 8:12 AM CDT BILATERAL DIAGNOSTIC DIGITAL MAMMOGRAMS WITH COMPUTER ASSISTED DIAGNOSIS Date of exam: 08/12/10 HISTORY: Breast cysts. A bilateral diagnostic mammogram was performed and compared to 01/01/2009. Heterogeneously dense breast parenchyma is present. There are multiple dominant masses bilaterally many of which have decreased in size since prior exam. No definite new mass is identified. No suspicious calcifications, asymmetry or distortion is identified. The images were reviewed using the CAD system. Procedure Note Sanna Pinzon MD - 08/14/2010 BILATERAL DIAGNOSTIC DIGITAL MAMMOGRAMS WITH COMPUTER ASSISTED DIAGNOSIS Date of exam: 08/12/10 HISTORY: Breast cysts. A bilateral diagnostic mammogram was performed and compared to 01/01/2009.Heterogeneously dense breast parenchyma is present. There are multipledominant masses bilaterally many of which have decreased in size sinceprior exam. No definite new mass is identified. No suspiciouscalcifications, asymmetry or distortion is identified. The images werereviewed using the CAD system. IMPRESSION: Negative bilateral diagnostic mammogram. Recommend routine follow up. OVERALL ASSESSMENT: BIRADS category 1 - Negative Patient: Daiana Bar Rita Villafuerte MD MAMMO ORDERABLES Final Result from Last 3 Months or Most Recently Relevant to Health Maintenance Insurance [facility] BLUE ACCESS/TRUE BLUE PPO Care Teams Posting Machine Operator Relationship Specialty Start Date End Date Jonathan Ratliff DO [address] [facility] [address] [place] [address] PCP - General Internal Medicine 12/08/09
--- OUTSIDE RECORDS SUMMARY | 2024-10-23 14:09 | XMS_ITS | Clinical Summary ---
Author Organization [facility] Address [address] [place] [address] Care Team Providers Care Infantryman Name Role Phone Jonathan Ratliff DO Primary Care Provider [phone] Source Comments [facility],non-owned Affiliates and Associated Physician Practices is amultiple site organization consisting of ambulatory clinics and hospital sitesin [place], [place], [place] and [place]. This disclosure is being madepursuant to the Care Everywhere program and may not contain all information available regarding this patient. Last updated 18.[facility] Allergies Active Allergy Reactions Criticality Noted Date Comments Diphenhydramine Anaphylaxis High 04/13/2023 Metronidazole Other Medium 12/08/2009 Blisters on tongue Penicillins Rash Medium 12/08/2009 Sulfacetamide Rash Medium 04/13/2023 Medications * Be aware that medications may not be up to date on this document. Alwaysverify current medications with the patient. traZODone (Desyrel) 100 MG tablet Take 1 (one) tablet by mouth at bedtime 02/03/2023 Active citalopram (CeleXA) 20 MG tablet Take 1 (one) tablet by mouth once daily 01/15/2023 Active montelukast (Singulair) 10 MG tablet Take 1 (one) tablet by mouth once daily 04/04/2023 Active Advair Diskus 250-50 MCG/ACT inhaler Inhale 1 (one) puff by mouth 2 times daily 06/01/2022 Active SUMAtriptan (Imitrex) 100 MG tablet Take 1 (one) tablet by mouth 2 times daily as needed 03/24/2023 Active albuterol HFA (Proventil; Ventolin; Proair) 108 (90 Base) MCG/ACT inhaler Inhale 2 (two) puffs by mouth every 6 hours as needed Active triamcinolone acetonide (Kenalog) 0.1 % ointmentIndicat ions:Lichen sclerosus et atrophicus of the vulva APPLY TO EXTERNAL VULVAR TISSUES TWICE DAILY 30 g 2 01/09/2024 Active Active Problems No known active problems Family History Medical History Relation Name Comments Cancer - Breast Cousin Diabetes - Type 2 Cousin Osteoporosis Maternal Aunt Diabetes - Type 2 Maternal Grandfather Hypertension Maternal Grandfather CAD (Coronary Artery Disease) Mother Diabetes - Type 2 Mother High Cholesterol Mother Other Mother FIBROMYALGIA Relation Name Status Comments Cousin Alive Maternal Aunt Alive Maternal Grandfather Mother Social History Tobacco Use Types Packs/Day Years Used Date Smoking Tobacco: Former Cigarettes Q uit: 1984 Passive Smoke Exposure: Never Smokeless Tobacco: Never Tobacco Cessation:Counseling Given: Not Answered Alcohol Use Standard Drinks/Week Comments Not Currently 0 (1 standard drink = 0.6 oz pur e alcohol) Comments No Sex and Gender Information Value Date Recorded Sex Assigned at Not on file Legal Sex Female 11:24 AM CDT Gender Identity Not on file Sexual Orientation Not on file Last Filed Vital Signs Vital Sign Reading Time Taken Comments Blood Pressure 124/72 08/16/2023 10:08 AM CDT Pulse - - Temperature 36.6 C (97.8 F) 08/16/2023 10:08 AM CDT Respiratory Rate - - Oxygen Saturation - - Inhaled Oxygen Concentration - - Weight 79 kg (174 lb 3.2 oz) 08/16/2023 10:08 AM CDT Height 157.5 cm (5' 2) 08/16/2023 10:08 AM CDT Body Mass Index 31.86 08/16/2023 10:08 AM CDT Plan of Treatment Health Maintenance Due Date Last Done Comments BONE DENSITY TESTING 1958 COLOGUARD (AGES 45-75) - COLON CA SCREENING 1958 COLON MONITORING 1958 COLONOSCOPY - COLON CA SCREENING 1958 CT COLONOGRAPHY - COLON CA SCREENING 1958 Colorectal Cancer Screening 1958 FIT - COLON CA SCREENING 1958 FLEX SIG - COLON CA SCREENING 1958 LIPID TESTING 1958 MAMMOGRAM 1958 PAP SMEAR 1958 HIV SCREENING 1973 HEPATITIS C SCREENING 11/13/1976 DTAP/TDAP/TD VACCINES (1 - Tdap) 1977 PNEUMOCOCCAL VACCINE 50+ (1 of 1 - PCV) 2008 ZOSTER VACCINE (1 of 2) 2008 SCREENING FOR DIABETES 04/13/2023 COVID-19 VACCINE ( season) 2024 12/03/2021, 05/12/2021, 07/22/2020, Additional history exists DEPRESSION SCREENING 05/16/2024 MEDICARE AWV CALENDAR YEAR 2024 INFLUENZA VACCINE (Season Ended) 2025 Respiratory Syncytial Virus (RSV) Vaccine Pt: or over 60 yrs (1 - 1-dose 75+ series) 2033 HEPATITIS B VACCINE Aged Out No longe r eligible based on patient's age to complete this topic HIB VACCINE Aged Out No longer eligi ble based on patient's age to complete this topic HPV VACCINE Aged Out No longer eligi ble based on patient's age to complete this topic MENINGOCOCCAL (Group B) VACCINE SHARED DECISION-MAKING Aged Out No longer eligible based on patient's age to complete this topic MENINGOCOCCAL GROUPS A/C/Y/W VACCINE Aged Out No longer eligible based on patient's age to complete this topic Insurance [facility] MANAGED MEDICARE ADV Care Teams Infantryman Relationship Specialty Start Date End Date Jonathan Ratliff DO [address] [facility] [address] [place] [address] PCP - General Internal Medicine 04/13/23
[2024-10-23 14:28] LABS: Vitamin D 25 Hydroxy 85.1 ng/mL
== END 2024-10-23 13:07 | disposition home or self-care (01) ==
LOC: ANHLAB 13:09
PROVIDERS: PCP Internal Medicine; Visit Provider Nurse Practitioner
DX: E55.9 Vitamin D deficiency, unspecified (principal)
CPT/HCPCS: 36415; 82306

== ENCOUNTER 2025-01-31 07:59 | Outpatient (CLI) | payer MEDICARE, SELFPAY ==
[2025-01-31 08:16] LABS: Hematocrit 42.9 % (37.0-47.0); Hemoglobin 13.8 g/dL (12.0-15.0); Immature Granulocyte Percent A 0.2 % (0-0.5); Lymphocytes Absolute Auto 2.20 K/mm3 (0.9-3.2); Mean Corpuscular HGB Conc 32.2 g/dl (32-36); Mean Corpuscular Hemoglobin 30.7 pg (26-34); Mean Corpuscular Volume 95.3 fl (80-100); Nucleated Red Blood Cells Absolute Auto 0.000 K/mm3 (0.0-0.012); Nucleated Red Blood Cells Perc 0.0 % (0.0-0.2); Platelet Count Result 144 k/mm3 (150-375); Red Blood Count 4.50 M/mm3 (4.2-5.4); White Blood Count 6.1 K/mm3 (4.5-10.0)
--- OUTSIDE RECORDS SUMMARY | 2025-01-31 08:22 | XMS_ITS | Clinical Summary ---
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
--- OUTSIDE RECORDS SUMMARY | 2025-01-31 08:22 | XMS_ITS | Clinical Summary ---
Author Organization [facility] Address [address] [place] [address] Care Team Providers Care Siebel Solution Architect Name Role Phone Jonathan Ratliff DO Primary Care Provider [phone] Source Comments [facility],non-owned Affiliates and Associated Physician Practices is amultiple site organization consisting of ambulatory clinics and hospital sitesin [place], [place], [place] and [place]. This disclosure is being madepursuant to the Care Everywhere program and may not contain all information available regarding this patient. Last updated 18.[facility] Allergies Active Allergy Reactions Criticality Noted Date [...] SCREENING 1958 LIPID TESTING 1958 MAMMOGRAM 1958 HEPATITIS C SCREENING 11/13/1976 DTAP/TDAP/TD VACCINES (1 - Tdap) 1977 PNEUMOCOCCAL VACCINE 50+ (1 of 1 - PCV) 2008 ZOSTER VACCINE (1 of 2) 2008 SCREENING FOR DIABETES 04/13/2023 DEPRESSION SCREENING 05/16/2024 MEDICARE AWV CALENDAR YEAR 2024 COVID-19 VACCINE ( season) 2025 12/03/2021, 05/12/2021, 07/22/2020, Additional history exists INFLUENZA VACCINE (#1) 2025 Respiratory Syncytial Virus (RSV) Vaccine Pt: [...] patient's age to complete this topic Insurance [facility] [place] [id number] Care Teams Siebel Solution Architect Relationship Specialty Start Date End Date Jonathan Ratliff DO [address] [address] PCP - General Internal Medicine 04/13/23
[2025-01-31 08:37] LABS: Alanine Aminotransferase 13 U/L (6-35); Albumin Level 4.2 g/dL (3.5-5.1); Alkaline Phosphatase 64 U/L (38-126); Anion Gap 6 mmol/L (4-12); Aspartate Amino Transferase 24 U/L (14-36); Bilirubin,Total 0.5 mg/dL (0.2-1.3); Blood Urea Nitrogen 17 mg/dL (7-17); Calcium 9.2 mg/dL (8.4-10.2); Carbon Dioxide 29 mmol/L (22-30); Chloride 104 mmol/L (98-107); Cholesterol 218 mg/dL (0-200); Estimated Glomerular Filt Rate > 60; Glucose 106 mg/dL (65-110); HDL Direct 63 mg/dL; Potassium 4.0 mmol/L (3.4-5.0); Sodium 139 mmol/L (137-145); Total Protein 7.7 g/dL (6.3-8.2); Triglycerides 111 mg/dL (<150)
[2025-01-31 08:53] LABS: Free T4 Free Thyroxine 0.94 ng/dL (0.78-2.19)
[2025-01-31 09:03] LABS: Hemoglobin A1C 5.7 % (<5.7)
[2025-01-31 09:13] LABS: Thyroid Stimulating Hormone 2.750 uIU/mL (0.465-4.680)
== END 2025-01-31 08:00 | disposition home or self-care (01) ==
LOC: ANHLAB 08:01
PROVIDERS: PCP Internal Medicine; Visit Provider Internal Medicine
DX: E78.5 Hyperlipidemia, unspecified (principal); K90.0 Celiac disease; R79.89 Other specified abnormal findings of blood chemistry
CPT/HCPCS: 36415; 80053; 80061; 83036; 84439; 84443; 85025